=== PATIENT | male | born 1950 | race Caucasian/White ===

== ENCOUNTER 2022-09-08 11:00 | Inpatient (IN) | payer MEDICARE, OTHER ==
[~2022-09-08] VITALS: Ht 190.5 cm; Wt 104.0 kg
[2022-09-08 12:10] LABS: BASOPHILS % (AUTO) 0.5 % (0-1); EOSINOPHILS # (AUTO) 0.2 X10'3 (0-0.9); EOSINOPHILS % (AUTO) 2.1 % (0-6); HEMATOCRIT 44.7 % (42.0-52.0); HEMOGLOBIN 15.3 g/dl (14.0-17.9); LYMPHOCYTES # (AUTO) 1.9 X10'3 (1.1-4.8); LYMPHOCYTES % (AUTO) 22.8 % (21-51); MEAN CORPUSCULAR HEMOGLOBIN 30.6 PG (27.0-31.0); MEAN CORPUSCULAR HGB CONC 34.2 g/dL (33.0-36.5); MEAN CORPUSCULAR VOLUME 89.4 FL (78-98); MONOCYTES # (AUTO) 0.8 X10'3 (0-0.9); NEUTROPHILS # (AUTO) 5.6 X10'3 (1.8-7.7); NEUTROPHILS % (AUTO) 65.6 % (42-75); PLATELET COUNT 194 X10'3 (140-440); RED CELL DISTRIBUTION WIDTH 14.3 % (11.5-14.5); WHITE BLOOD COUNT 8.5 X10'3 (4.5-11.0)
[2022-09-08 12:29] LABS: ALANINE AMINOTRANSFERASE 23 U/L (12-78); ALBUMIN 3.3 G/DL (3.4-5.0); ALKALINE PHOSPHATASE 71 IU/L (46-116); ANION GAP 3 (8-16); ASPARTATE AMINO TRANSFERASE 15 U/L (10-37); BILIRUBIN,TOTAL 0.4 MG/DL (0.1-1.0); BLOOD UREA NITROGEN 14 MG/DL (7-18); BUN/CREATININE RATIO 11.8 (5.4-32.0); CALCIUM 8.8 MG/DL (8.5-10.1); CHLORIDE 107 MMOL/L (99-107); CREATININE 1.19 MG/DL (0.60-1.10); GLUCOSE 105 MG/DL (70-104); POTASSIUM 4.1 MMOL/L (3.5-5.1); SODIUM 143 MMOL/L (135-145); TOTAL CARBON DIOXIDE 32.9 MMOL/L (24-32); TOTAL PROTEIN 6.6 G/DL (6.4-8.2); eGFR 60 ML/MIN
[2022-09-08 16:03] LABS: CLARITY,URINE TURBID (Clear); COLOR,URINE YELLOW (Yellow); GLUCOSE, URINE NEGATIVE (Neg); KETONES,URINE NEGATIVE (Neg); LEUKOCYTE ESTERASE ,URINE NEGATIVE (Neg); NITRITES, URINE NEGATIVE (Neg); OCCULT BLOOD,URINE LARGE (Neg); PROTEIN,URINE NEGATIVE (Neg); UROBILINOGEN,URINE 0.2 E.U/dL (0.2-1.0)
[2022-09-08 16:05] LABS: UA COLLECTION TYPE CLN CATCH MIDSTREAM
[2022-09-08 16:10] LABS: AMORPHOUS URATES 4+; CAL OXALATE CRYSTALS 4+ /HPF (NEGATIVE)
[2022-09-08 16:11] LABS: BACTERIA,URINE FEW /HPF (Neg); WBC,URINE 0-4 /HPF (0-4)
[2022-09-08 16:12] LABS: SQUAMOUS EPITHELIAL CELL,UR FEW /LPF (FEW)
[2022-09-08] MEDS: normal saline 1000ml 1,000 ML IV SCH (16:45)
[2022-09-08] MEDS ORDERED: acetaminophen 325mg tablet PO PRN (16:45)
[2022-09-08] MEDS ORDERED: mag hydrox/Alum hydrox/simeth 30ml oral suspension PO PRN (16:45)
[2022-09-08] MEDS ORDERED: ondansetron/PF 4mg/2ml inj IV PRN (16:45)
[2022-09-08] MEDS ORDERED: potassium Cl 20 mEq SR tablet PO PRN ×2 (16:45)
[2022-09-08] MEDS ORDERED: potassium Cl 40MEQ/1/2NS 520ml 520 ML IV PRN (16:45)
[2022-09-08] MEDS ORDERED: magnesium hydroxide 30ml (MOM) UD suspension PO PRN (16:45)
[2022-09-08] MEDS ORDERED: magnesium 4gm in 100ml NS 100 ML IV PRN (16:45)
[2022-09-08] MEDS ORDERED: PERFLUTREN PROTEIN-A MICROSPHR (Optison) 0.22 MG/ML 3ML VIAL IV ONE (16:45)
[2022-09-08] MEDS ORDERED: magnesium Cl slow-release 64mg tablet PO PRN (16:45)
[2022-09-08] MEDS ORDERED: aspirin 325mg tablet PO ONE (16:50)
[2022-09-08 17:02] LABS: MAGNESIUM 2.1 MG/DL (1.5-2.4)
[2022-09-08] MEDS ORDERED: aminophylline 500mg/20ml vial IV PRN (17:10)
[2022-09-08] MEDS ORDERED: nitroGLYCERIN 0.4mg SUBLingual tab SL PRN (17:10)
[2022-09-08] MEDS ORDERED: metoprolol tartrate 1mg/ml inj IV PRN (17:10)
[2022-09-08] MEDS ORDERED: regadenoson 0.4mg/5ml syringe IV PRN (17:10)
--- NOTE | 2022-09-08 17:20 | NUR ---
PT WAS SEEN BY HOSPITALIST DR. MCCULLOUGH, RECEIVED VO PT TO BE STARTED ON NICOTINE PATCH 14MG TOPICAL DAILY,
[2022-09-08] MEDS: nicotine 14mg patch - 24hr TD SCH (18:04)
[2022-09-08] MEDS: K and/or MAG REPLACEMENT MC SCH (20:00)
[2022-09-08] MEDS: docusate sod 100mg capsule PO SCH (20:27)
[2022-09-08] MEDS: enoxaparin 30mg/0.3ml syringe SQ SCH (20:32)
[2022-09-09] VITALS (8 sets, daily range): BP systolic 143–182; BP diastolic 68–94
[2022-09-09] MEDS ORDERED: ALPR1TAB2 PO (02:41)
[2022-09-09] MEDS ORDERED: OXYC-658 PO (02:41)
[2022-09-09] MEDS: normal saline 1000ml 1,000 ML IV SCH ×2 (02:45→13:27)
[2022-09-09] MEDS ORDERED: CITA10TA93 PO (02:56)
[2022-09-09] MEDS ORDERED: OXYC10TA47 PO (02:56)
[2022-09-09 03:20] LABS: BASOPHILS % (AUTO) 0.6 % (0-1); EOSINOPHILS # (AUTO) 0.2 X10'3 (0-0.9); EOSINOPHILS % (AUTO) 3.2 % (0-6); HEMATOCRIT 41.4 % (42.0-52.0); HEMOGLOBIN 13.7 g/dl (14.0-17.9); LYMPHOCYTES # (AUTO) 2.3 X10'3 (1.1-4.8); LYMPHOCYTES % (AUTO) 34.3 % (21-51); MEAN CORPUSCULAR HGB CONC 33.2 g/dL (33.0-36.5); MEAN CORPUSCULAR VOLUME 90.5 FL (78-98); MEAN PLATELET VOLUME 7.4 FL (7.4-10.4); MONOCYTES # (AUTO) 0.7 X10'3 (0-0.9); MONOCYTES % (AUTO) 10.3 % (2-12); NEUTROPHILS # (AUTO) 3.4 X10'3 (1.8-7.7); NEUTROPHILS % (AUTO) 51.6 % (42-75); PLATELET COUNT 170 X10'3 (140-440); RED BLOOD COUNT 4.58 X10'6 (4.70-6.10); RED CELL DISTRIBUTION WIDTH 14.5 % (11.5-14.5); WHITE BLOOD COUNT 6.6 X10'3 (4.5-11.0)
[2022-09-09 03:31] LABS: ALBUMIN 2.8 G/DL (3.4-5.0); ANION GAP 4 (8-16); BLOOD UREA NITROGEN 14 MG/DL (7-18); BUN/CREATININE RATIO 14.1 (5.4-32.0); CALCIUM 8.5 MG/DL (8.5-10.1); CHLORIDE 107 MMOL/L (99-107); CREATININE 0.99 MG/DL (0.60-1.10); GLUCOSE 96 MG/DL (70-104); POTASSIUM 3.7 MMOL/L (3.5-5.1); SODIUM 142 MMOL/L (135-145); TOTAL CARBON DIOXIDE 30.7 MMOL/L (24-32); eGFR 75 ML/MIN
--- NOTE | 2022-09-09 05:30 | NUR ---
PAGED DR JONES REGARDING HYPERTENSION , AWAITING RETURN CALL
--- NOTE | 2022-09-09 05:48 | NUR ---
PAGED DR JONES REGARDING HYPERTENSION 199/, AWAITING RETURN CALL
--- NOTE | 2022-09-09 06:26 | NUR ---
NOTIFIED KELSY CHAMBERLAIN DURING END OF SHIFT REPORT OF PT HTN AND AWAITING DR JONES TO RETURN X2 PAGES.
[2022-09-09] MEDS ORDERED: hydrALAZINE 20mg/ml inj. IV PRN (07:40)
[2022-09-09] MEDS: docusate sod 100mg capsule PO SCH (08:00)
[2022-09-09] MEDS: K and/or MAG REPLACEMENT MC SCH (08:13)
[2022-09-09] MEDS: nicotine 14mg patch - 24hr TD SCH (08:17)
[2022-09-09] MEDS: enoxaparin 30mg/0.3ml syringe SQ SCH (08:23)
--- NOTE | 2022-09-09 08:48 | NUR ---
BEN TECH HERE TO TAKE PT FOR STRESS TEST. DISCUSSED WITH DR MCCOY NEED FOR RN TO ACCOMPANY PT. PER DR MCCOY, RN DOES NOT NEED TO ACCOMPANY PT TO [facility] SCAN
--- NOTE | 2022-09-09 08:51 | NUR ---
Pt went to get a stress test done, doctor ok the pt does not need to be with a RN
[2022-09-09] MEDS ORDERED: aminophylline inj. 0 ML IV ONE (09:09)
--- NOTE | 2022-09-09 10:43 | NUR ---
After pt had the nitro this morning, pt stated that he has not had chest pain or SOB since then
[2022-09-09] MEDS ORDERED: VALS80TA32 PO (14:26)
[2022-09-09] MEDS ORDERED: VALS1TAB73 PO (16:22)
== END 2022-09-09 17:21 | disposition home or self-care (01) | DRG 282 ==
LOC: ER 11:01 → ED HOLD 16:52 → EDBEDREQ 20:34
PROVIDERS: ADMIT Family Medicine; ATTEND Family Medicine
PROC: 4A02XM4 Measurement of Cardiac Total Activity, External Approach (ICD-10-PCS; principal; 2022-09-09)
PROC: 3E033HZ Introduction of Radioactive Substance into Peripheral Vein, Percutaneous Approach (ICD-10-PCS; 2022-09-09)
DX: R55 Syncope and collapse (principal); I21.A1 Myocardial infarction type 2; M54.9 Dorsalgia, unspecified; I10 Essential (primary) hypertension; F17.210 Nicotine dependence, cigarettes, uncomplicated; G89.29 Other chronic pain; R77.8 Other specified abnormalities of plasma proteins
CPT/HCPCS: 36415; 70551; 71045; 78452; 80048; 80053; 81001; 83735; 83880; 84484; 85025; 93005; 93017; 93306; 93880; 96360; 99285; A6449; A9500; G0378; J0280; J1650; J2785; J7030; L4360